=== PATIENT | female | born 1990 | race Caucasian/White ===

== ENCOUNTER 2017-04-13 17:10 | Emergency (ER) | payer MEDICAID ==
[2017-04-13] MEDS: HYDROCODONE/APAP (5/325) TAB PO (19:29)
[2017-04-13] MEDS ORDERED: ACETAMINOPHEN 325 MG TAB PO (19:30)
[2017-04-13] MEDS: CEFTRIAXONE 1 GM INJ IM (19:30)
[2017-04-13] MEDS ORDERED: CEPHALEXIN 500 MG CAP PO (19:30)
[2017-04-13] MEDS ORDERED: TRIMETHOPRIM/SULFAMETHOX (DS) TAB PO (19:30)
[2017-04-13] MEDS: LIDOCAINE 1% (MDV) 20 ML INJ SC (19:31)
== END 2017-04-13 19:56 | disposition home or self-care (01) ==
LOC: FTE 17:10
DX: L02.212 Cutaneous abscess of back [any part, except buttock and flank] (principal); I10 Essential (primary) hypertension
CPT/HCPCS: 96372; 99284-25; J0696